=== PATIENT | male | born 1975 | race Caucasian/White ===

== ENCOUNTER 2017-03-28 12:55 | Inpatient (IN) | payer OTHER ==
[2017-03-28 16:54] VITALS: BMI 20.4
--- NOTE | 2017-03-28 18:21 | HP ---
COWS - Scale Resting Pulse: 0= HI 80 or Below Sweatin= Chills/Flushing Restless Observation: 3= Extraneous Movement Pupil Size: 0= Normal to Room Light Bone or Joint Aches: 2= Severe Diffuse Aches Runny Nose/ Eye Tearin= Runny Nose/Eyes GI Upset > 30mins: 2= Nausea/Diarrhea Tremor Observation: 2= Slight Tremor Visible Yawning Observation: 0= None Anxiety or Irritability: 2=Irritable/Anxious Goose Flesh Skin: 0=Smooth Skin COWS Score: 14 CIWA Score - CIWA Score Nausea/Vomitin-Mild Nausea/No Vomiting Muscle Tremors: 4-Moderate,w/Arms Extend Anxiety: 4-Mod. Anxious/Guarded Agitation: 4-Moderately Restless Paroxysmal Sweats: 1-Minimal Palms Moist Orientation: 0-Oriented Tacttile Disturbances: 0-None Auditory Disturbances: 0-None Visual Disturbances: 0-None Headache: 0-None Present CIWA-Ar Total Score: 14 Admission ROS S - HPI Chief Complaint: withdrawal sx Allergies/Adverse Reactions: Allergies Allergy/AdvReac Type Severity Reaction Status Date / Time No Known Allergies Allergy Verified 03/28/17 16:49 History of Present Illness: 42 years old male with long history of alcohol, xanax, opiate nicotine marijuana dependence, denies medical issue has depression is admitted to detox Exam Limitations: No Limitations - Ebola screening Have you traveled outside of the country in the last 21 days: No Have you had contact with anyone from an Ebola affected area: No Have you been sick,other than usual withdrawal symptoms: No Do you have a fever: No - Review of Systems Constitutional: Loss of Appetite, Changes in sleep, Unintentional Wgt. Loss, Unexplained wgt Loss EENT: reports: Blurred Vision (need eye glasses) Respiratory: reports: SOB with Exertion, Productive cough (brownish) Cardiac: reports: No Symptoms Reported GI: reports: Nausea, Poor Appetite, Poor Fluid Intake, Abdominal cramping : reports: No Symptoms Reported Musculoskeletal: reports: Back Pain, Joint Pain, Muscle Pain, Neck Pain Integumentary: reports: Rash Neuro: reports: Tremors Endocrine: reports: No Symptoms Reported Hematology: reports: No Symptoms Reported Psychiatric: reports: Judgement Intact, Orientated x3, Anxious, Depressed Other Systems: Reviewed and Negative Patient History - Patient Medical History Hx Anemia: No Hx Asthma: No Hx Chronic Obstructive Pulmonary Disease (COPD): No Hx Cancer: No Hx Cardiac Disorders: No Hx Congestive Heart Failure: No Hx Hypertension: No Hx Hypercholesterolemia: No Hx Pacemaker: No HX Cerebrovascular Accident: No Hx Seizures: No Hx Dementia: No Hx Diabetes: No Hx Gastrointestinal Disorders: No Hx Liver Disease: No Hx Genitourinary Disorders: No Hx Sexually Transmitted Disorders: No Hx Renal Disease (ESRD): No Hx Thyroid Disease: No Hx Human Immunodeficiency Virus (HIV): No Hx Hepatitis C: No Hx Depression: Yes Hx Suicide Attempt: No Hx Bipolar Disorder: No Hx Schizophrenia: No - Patient Surgical History Past Surgical History: Yes Hx Neurologic Surgery: No Hx Cataract Extraction: No Hx Cardiac Surgery: No Hx Lung Surgery: No Hx Breast Surgery: No Hx Breast Biopsy: No Hx Abdominal Surgery: No Hx Appendectomy: No Hx Cholecystectomy: No Hx Genitourinary Surgery: No Hx Orthopedic Surgery: No Other Surgical History: Tonsillectomy at age 5 yrs old Anesthesia Reaction: No - PPD History Previous Implant?: Yes Documented Results: Negative w/o proof Implanted On Prior R Admission?: No PPD to be Administered?: Yes - Smoking Cessation Smoking history: Current every day smoker Have you smoked in the past 12 months: Yes Aproximately how many cigarettes per day: 20 Cigars Per Day: 0 Hx Chewing Tobacco Use: No Initiated information on smoking cessation: Yes 'Breaking Loose' booklet given: 03/28/17 - Substance & Tx. History Hx Alcohol Use: Yes Hx Substance Use: Yes Substance Use Type: Alcohol, Cocaine, Marijuana, Opiates Hx Substance Use Treatment: No - Substances Abused Oxycontin Route: Oral Frequency: Daily Amount used: 2 of 20mg Age of first use: 24 Date of Last Use: 03/27/17 Marijuana/Hashish Route: Smoking Frequency: Daily Amount used: 2-3 joint Age of first use: 17 Date of Last Use: 03/28/17 Alprazolam (Xanax) Route: Oral Frequency: 1-2 times per week Amount used: 6mg Age of first use: 20 Date of Last Use: 03/26/17 percocet Route: Oral Frequency: Daily Amount used: 5-6 tabs Age of first use: 24 Date of Last Use: 03/27/17 Alcohol Route: Oral Frequency: 3-6 times per week Amount used: 24 oz x 6 beer Age of first use: 17 Date of Last Use: 03/27/17 Family Disease History - Family Disease History Family Disease History: Heart Disease: Mother (), CA: Father () , Other: Father, Mother Other Family History: only child Admission Physical Exam S - Vital Signs Vital Signs: Vital Signs - 24 hr 03/28/17 16:52 Temperature 97.2 F L Pulse Rate 70 Respiratory 20 Rate Blood Pressure 119/72 - Physical General Appearance: Yes: Appropriately Dressed, Mild Distress, Thin, Tremorous, Irritable, Sweating, Anxious HEENTM: Yes: Hearing grossly Normal, Normal ENT Inspection, Normocephalic, Normal Voice Respiratory: Yes: Chest Non-Tender, No Respiratory Distress, No Accessory Muscle Use Neck: Yes: Supple, Trachea in good position Breast: Yes: Breasts Symetrical Cardiology: Yes: Regular Rhythm, Regular Rate, S1, S2 Abdominal: Yes: Non Tender, Soft, Increased Bowel Sounds Genitourinary: Yes: Within Normal Limits Back: Yes: Normal Inspection Musculoskeletal: Yes: full range of Motion, Gait Steady, Back pain, Muscle Pain Extremities: Yes: Normal Range of Motion, Non-Tender, Tremors, Other (rashes hands) Neurological: Yes: Fully Oriented, Alert, Motor Strength 5/5, Normal Response, Depressed Affect Integumentary: Yes: Warm Lymphatic: Yes: Within Normal Limits - Diagnostic (1) Sedative, hypnotic or anxiolytic dependence with withdrawal, uncomplicated Current Visit: Yes Status: Acute (2) Cannabis dependence, uncomplicated Current Visit: Yes Status: Chronic (3) Alcohol dependence with uncomplicated withdrawal Current Visit: Yes Status: Acute (4) Acneiform rash Current Visit: Yes Status: Chronic (5) COPD (chronic obstructive pulmonary disease) Current Visit: Yes Status: Chronic 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 Qualified Code(s ): J43.0 - Unilateral pulmonary emphysema [MacLeod's syndrome]; J43.0 - Unilateral pulmonary emphysema [MacLeod's syndrome]; J43.0 - Unilateral pulmonary emphysema [MacLeod's syndrome]; J43.0 - Unilateral pulmonary emphysema [MacLeod's syndrome] (6) Weight loss Current Visit: Yes Status: Acute (7) Depression (emotion) Current Visit: Yes Status: Suspected Qualifiers: Depression Type: dysthymia Qualified Code(s): F34.1 - Dysthymic disorder; F34.1 - Dysthymic disorder; F34.1 - Dysthymic disorder Cleared for Admission [facility] - Detox or Rehab [facility] Level of Care: Medically Managed Detox Regimen/Protocol: Methadone/Valium [facility] Breath Alcohol Content Breath Alcohol Content: 0 Urine Drug Screen - Results Urine Drug Screen Results: THC-Marijuana, BZO-Benzodiazepines, OXY-Oxycodone
[2017-03-28] MEDS ORDERED: guaiFENesin/D-METHORPHAN HB 10 ML UNIT-DOSE CUPS PO PRN (18:31)
[2017-03-28] MEDS ORDERED: MAGNESIUM CITRATE 300 ML BOTTLE PO PRN (18:31)
[2017-03-28] MEDS ORDERED: MAGNESIUM HYDROX 2400MG/30ML ORAL SUSPENSION 30 ML CUP PO PRN (18:31)
[2017-03-28] MEDS ORDERED: MENTHOL/PHENOL 1 EACH UD MM PRN (18:31)
[2017-03-28] MEDS ORDERED: P-EPHED 60MG/TRIPROLIDI 2.5MG TABLET PO PRN (18:31)
[2017-03-28] MEDS ORDERED: ACETAMINOPHEN 325 MG TABLET (FP) PO PRN (18:31)
[2017-03-28] MEDS ORDERED: METHADONE HCL 10 MG TABLET (FOR DETOX USE ONLY) PO ONE ×2 (19:00→23:00)
[2017-03-28] MEDS ORDERED: diazePAM 5 MG TABLET PO ONE (19:00)
[2017-03-28 22:11] LABS: URINE APPEARANCE CLEAR; URINE BILIRUBIN NEGATIVE (NEGATIVE); URINE BLOOD NEGATIVE (NEGATIVE); URINE COLOR LTYELLOW; URINE GLUCOSE (UA) NEGATIVE (NEGATIVE); URINE KETONE NEGATIVE (NEGATIVE); URINE NITRITE NEGATIVE (NEGATIVE); URINE PROTEIN NEGATIVE (NEGATIVE); URINE UROBILINOGEN NEGATIVE mg/dL (0.2-1.0)
[2017-03-28] MEDS: HYDROCORTISONE 1% TOPICAL CREAM 30 GM TUBE TP SCH (22:14)
[2017-03-28] MEDS: diazePAM 5 MG TABLET PO SCH (22:14)
[2017-03-28] MEDS: THIAMINE HCL 100 MG TABLET (FP) PO SCH (22:14)
[2017-03-28] MEDS: ALBUTEROL SO4 18 GM HFA INHALER IH PRN (22:17)
[2017-03-28] MEDS: NICOTINE POLACRILEX 4 MG GUM BC PRN (22:17)
[2017-03-29] MEDS: diazePAM 5 MG TABLET PO SCH ×3 (05:49→22:16)
[2017-03-29] MEDS: NICOTINE POLACRILEX 4 MG GUM BC PRN (06:06)
[2017-03-29] MEDS: diazePAM 5 MG TABLET PO PRN ×3 (09:16→23:51)
[2017-03-29 09:38] LABS: MCH 31.8 pg (25.7-33.7); MCHC 33.2 g/dl (32.0-35.9); MEAN PLT VOLUME 7.9 fl (7.5-11.1); PLATELET COUNT 221 K/MM3 (134-434); RDW 13.2 % (11.9-15.9); WHITE BLOOD COUNT 5.5 K/mm3 (4.0-10.0)
[2017-03-29 09:57] LABS: ALBUMIN 3.7 g/dl (3.4-5.0); ALK PHOS 66 U/L (45-117); ANION GAP 9 (8-16); BILIRUBIN,TOTAL 0.5 mg/dL (0.2-1.0); CALCIUM 8.6 mg/dL (8.5-10.1); CO2 28 mmol/L (21-32); CREATININE 0.7 mg/dL (0.7-1.3); GLUCOSE,RANDOM 100 mg/dL (74-106); SGOT/AST 6 U/L (15-37); SGPT/ALT 14 U/L (12-78); TOT PROT 6.2 g/dl (6.4-8.2)
[2017-03-29] MEDS ORDERED: METHADONE HCL 10 MG TABLET (FOR DETOX USE ONLY) PO SCH (10:00)
[2017-03-29] MEDS: PRENATAL VITAMINS W/ FOLIC ACID TABLET (FP) PO SCH (11:05)
[2017-03-29] MEDS: NICOTINE 21 MG/24 HOURS TOPICAL PATCH TD SCH (11:06)
[2017-03-29] MEDS: HYDROCORTISONE 1% TOPICAL CREAM 30 GM TUBE TP SCH ×3 (11:07→22:18)
[2017-03-29 11:39] LABS: URINE LEUK ESTERASE Negative (NEGATIVE)
--- NOTE | 2017-03-29 11:41 | PN ---
S CIWA - CIWA Score Nausea/Vomitin Muscle Tremors: 3 Anxiety: 3 Agitation: 2 Paroxysmal Sweats: 1-Minimal Palms Moist Orientation: 0-Oriented Tacttile Disturbances: 1-Very Mild Itch/Numbness Auditory Disturbances: 1-Very Mild Visual Disturbances: 0-None Headache: 2-Mild CIWA-Ar Total Score: 16 BHS Progress Note (SOAP) Subjective: alert,irritable,anxious,interrupted sleep,tremor Objective: 03/29/17 11:39 Vital Signs Temperature 98.1 F 03/29/17 11:03 Pulse Rate 78 03/29/17 11:03 Respiratory Rate 20 03/29/17 11:03 Blood Pressure 131/78 03/29/17 11:03 O2 Sat by Pulse Oximetry (%) ekg nsr with sinus arrhythmia normal ecg Assessment: 03/29/17 11:40 Laboratory Last Values WBC 5.5 K/mm3 (4.0-10.0) 03/29/17 07:00 RBC 4.34 M/mm3 (4.00-5.60) 03/29/17 07:00 Hgb 13.8 GM/dL (11.7-16.9) 03/29/17 07:00 Hct 41.6 % (35.4-49) 03/29/17 07:00 MCV 96.0 fl (80-96) 03/29/17 07:00 MCH 31.8 pg (25.7-33.7) 03/29/17 07:00 MCHC 33.2 g/dl (32.0-35.9) 03/29/17 07:00 RDW 13.2 % (11.9-15.9) 03/29/17 07:00 Plt Count 221 K/MM3 (134-434) 03/29/17 07:00 MPV 7.9 fl (7.5-11.1) 03/29/17 07:00 Sodium 139 mmol/L (136-145) 03/29/17 07:00 Potassium 3.9 mmol/L (3.5-5.1) 03/29/17 07:00 Chloride 102 mmol/L (98-107) 03/29/17 07:00 Carbon Dioxide 28 mmol/L (21-32) 03/29/17 07:00 Anion Gap 9 (8-16) 03/29/17 07:00 BUN 9 mg/dL (7-18) 03/29/17 07:00 Creatinine 0.7 mg/dL (0.7-1.3) 03/29/17 07:00 Creat Clearance w eGFR > 60 (>60) 03/29/17 07:00 Random Glucose 100 mg/dL (74-106) 03/29/17 07:00 Calcium 8.6 mg/dL (8.5-10.1) 03/29/17 07:00 Total Bilirubin 0.5 mg/dL (0.2-1.0) 03/29/17 07:00 AST 6 U/L (15-37) L 03/29/17 07:00 ALT 14 U/L (12-78) 03/29/17 07:00 Alkaline Phosphatase 66 U/L (45-117) 03/29/17 07:00 Total Protein 6.2 g/dl (6.4-8.2) L 03/29/17 07:00 Albumin 3.7 g/dl (3.4-5.0) 03/29/17 07:00 Urine Color Ltyellow 03/28/17 21:30 Urine Appearance Clear 03/28/17 21:30 Urine pH 5.0 (5.0-8.0) 03/28/17 21:30 Urine Protein Negative (NEGATIVE) 03/28/17 21:30 Urine Glucose (UA) Negative (NEGATIVE) 03/28/17 21:30 Urine Ketones Negative (NEGATIVE) 03/28/17 21:30 Urine Blood Negative (NEGATIVE) 03/28/17 21:30 Urine Nitrite Negative (NEGATIVE) 03/28/17 21:30 Urine Bilirubin Negative (NEGATIVE) 03/28/17 21:30 Urine Urobilinogen Negative mg/dL (0.2-1.0) 03/28/17 21:30 RPR Titer Nonreactive (NONREACTIVE) 03/29/17 07:00 03/29/17 11:40 03/29/17 11:40 withdrawal sympom Plan: continue detox
--- NOTE | 2017-03-29 12:04 | EKG ---
Test Reason : Blood Pressure : / mmHG Vent. Rate : 063 BPM Atrial Rate : 063 BPM P-R Int : 150 ms QRS Dur : 096 ms QT Int : 386 ms P-R-T Axes : 058 074 058 degrees QTc Int : 395 ms NORMAL SINUS RHYTHM WITH SINUS ARRHYTHMIA NORMAL ECG NO PREVIOUS ECGS AVAILABLE Confirmed by JOSH ROSE, EMIR ([id number]) on 03/29/2017 12:04:35 PM Referred By: Confirmed By:EMIR MORENO MD
[2017-03-29] MEDS: IBUPROFEN 400 MG TABLET (FP) PO PRN (15:11)
--- NOTE | 2017-03-29 17:25 | CONSULT ---
[facility] Psychiatric Consult - Data Date of interview: 03/29/17 Admission source: [facility] Identifying data: First admission to [facility] for this 42 y/o male seeking detox treatment on for alcohol,marihuana,xanax and opiate dependence.Patient is single without children,domiciled and supported on odd jobs. Substance Abuse History: Patient confirmed this pattern of addictions. Smoking Cessation. Smoking history: Current every day smoker. Have you smoked in the past 12 months: Yes. Aproximately how many cigarettes per day: 20. Cigars Per Day: 0. Hx Chewing Tobacco Use: No. Initiated information on smoking cessation : Yes. 'Breaking Loose' booklet given: 03/28/17. - Substance & Tx. History. Hx Alcohol Use: Yes. Hx Substance Use: Yes. Substance Use Type: Alcohol, Cocaine, Marijuana, Opiates. Hx Substance Use Treatment: No. - Substances Abused. Oxycontin. Route: Oral. Frequency: Daily. Amount used: 2 of 20mg. Age of first use: 24. Date of Last Use: 03/27/17. Marijuana/ Hashish. Route: Smoking. Frequency: Daily. Amount used: 2-3 joint. Age of first use: 17. Date of Last Use: 03/28/17. Alprazolam (Xanax). Route: Oral. Frequency: 1-2 times per week. Amount used: 6mg. Age of first use: 20. Date of Last Use: 03/26/17. percocet. Route: Oral. Frequency: Daily. Amount used: 5-6 tabs. Age of first use: 24. Date of Last Use: 03/27/17. Alcohol. Route: Oral. Frequency: 3-6 times per week. Amount used: 24 oz x 6 beer. Age of first use: 17. Date of Last Use: 03/27/17 Medical History: Chronic back pain and history of tonsillectomy in childhood Psychiatric History: Patient denies. Physical/Sexual Abuse/Trauma History: Patient denies. Additional Comment: Urine Drug Screen Results: THC-Marijuana, BZO- Benzodiazepines, OXY-Oxycodone.Noted. Mental Status Exam - Mental Status Exam Alert and Oriented to: Time, Place, Person Cognitive Function: Good Patient Appearance: Well Groomed Mood: Nervous, Anxious Affect: Mood Congruent Patient Behavior: Cooperative (emotional during interview) Speech Pattern: Clear Voice Loudness: Normal Thought Process: Intact, Goal Oriented Thought Disorder: Not Present Hallucinations: Denies Suicidal Ideation: Denies Homicidal Ideation: Denies Insight/Judgement: Poor Sleep: Poorly, Difficulty falling asleep Appetite: Good Muscle strength/Tone: Normal Gait/Station: Normal Psychiatric Findings - Problem List ([place] 1, 2,3) (1) Alcohol dependence with uncomplicated withdrawal Current Visit: Yes Status: Acute (2) Sedative, hypnotic or anxiolytic dependence with withdrawal, uncomplicated Current Visit: Yes Status: Acute (3) Cannabis dependence, uncomplicated Current Visit: Yes Status: Acute (4) Substance induced mood disorder Current Visit: Yes Status: Acute (5) COPD (chronic obstructive pulmonary disease) Current Visit: Yes Status: Chronic 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
[2017-03-29] MEDS: THIAMINE HCL 100 MG TABLET (FP) PO SCH (22:16)
[2017-03-29] MEDS: ZOLPIDEM TARTRATE 10 MG TABLET (PARK CARE ONLY) PO PRN (22:16)
[2017-03-30] MEDS: diazePAM 5 MG TABLET PO PRN ×3 (06:20→19:36)
[2017-03-30] MEDS: MAG HYDROX/AL HYDROX/SIMETH 30 ML UNIT-DOSE CUP PO PRN (06:48)
[2017-03-30] MEDS: PRENATAL VITAMINS W/ FOLIC ACID TABLET (FP) PO SCH (11:14)
[2017-03-30] MEDS: diazePAM 5 MG TABLET PO SCH ×2 (11:14→22:22)
[2017-03-30] MEDS: METHADONE HCL 5 MG TABLET (FOR DETOX USE ONLY) PO SCH (11:14)
[2017-03-30] MEDS: NICOTINE 21 MG/24 HOURS TOPICAL PATCH TD SCH (11:16)
[2017-03-30] MEDS: HYDROCORTISONE 1% TOPICAL CREAM 30 GM TUBE TP SCH ×4 (11:18→22:35)
--- NOTE | 2017-03-30 12:13 | PN ---
S CIWA - CIWA Score Nausea/Vomitin Muscle Tremors: 3 Anxiety: 3 Agitation: 2 Paroxysmal Sweats: 1-Minimal Palms Moist Orientation: 0-Oriented Tacttile Disturbances: 1-Very Mild Itch/Numbness Auditory Disturbances: 1-Very Mild Visual Disturbances: 0-None Headache: 2-Mild CIWA-Ar Total Score: 16 BHS COWS - Scale Resting Pulse: 0= [place] 80 or Below Sweatin= Chills/Flushing Restless Observation: 3= Extraneous Movement Pupil Size: 1= Pupils >than Normal Bone or Joint Aches: 2= Severe Diffuse Aches Runny Nose/ Eye Tearin= Nasal Congestion GI Upset > 30mins: 2= Nausea/Diarrhea Tremor Observation of Outstretched Hands: 2= Slight Tremor Visible Yawning Observation: 1= 1-2x During Session Anxiety or Irritability: 2=Irritable/Anxious Goose Flesh Skin: 0=Smooth Skin COWS Score: 15 BHS Progress Note (SOAP) Subjective: alert,irritable,anxious,interrupted sleep,tremor,pain in the body and back Objective: 03/30/17 12:11 Vital Signs Temperature 97.7 F 03/30/17 09:33 Pulse Rate 73 03/30/17 09:33 Respiratory Rate 18 03/30/17 09:33 Blood Pressure 124/67 03/30/17 09:33 O2 Sat by Pulse Oximetry (%) Laboratory Last Values WBC 5.5 K/mm3 (4.0-10.0) 03/29/17 07:00 RBC 4.34 M/mm3 (4.00-5.60) 03/29/17 07:00 Hgb 13.8 GM/dL (11.7-16.9) 03/29/17 07:00 Hct 41.6 % (35.4-49) 03/29/17 07:00 MCV 96.0 fl (80-96) 03/29/17 07:00 MCH 31.8 pg (25.7-33.7) 03/29/17 07:00 MCHC 33.2 g/dl (32.0-35.9) 03/29/17 07:00 RDW 13.2 % (11.9-15.9) 03/29/17 07:00 Plt Count 221 K/MM3 (134-434) 03/29/17 07:00 MPV 7.9 fl (7.5-11.1) 03/29/17 07:00 Sodium 139 mmol/L (136-145) 03/29/17 07:00 Potassium 3.9 mmol/L (3.5-5.1) 03/29/17 07:00 Chloride 102 mmol/L (98-107) 03/29/17 07:00 Carbon Dioxide 28 mmol/L (21-32) 03/29/17 07:00 Anion Gap 9 (8-16) 03/29/17 07:00 BUN 9 mg/dL (7-18) 03/29/17 07:00 Creatinine 0.7 mg/dL (0.7-1.3) 03/29/17 07:00 Creat Clearance w eGFR > 60 (>60) 03/29/17 07:00 Random Glucose 100 mg/dL (74-106) 03/29/17 07:00 Calcium 8.6 mg/dL (8.5-10.1) 03/29/17 07:00 Total Bilirubin 0.5 mg/dL (0.2-1.0) 03/29/17 07:00 AST 6 U/L (15-37) L 03/29/17 07:00 ALT 14 U/L (12-78) 03/29/17 07:00 Alkaline Phosphatase 66 U/L (45-117) 03/29/17 07:00 Total Protein 6.2 g/dl (6.4-8.2) L 03/29/17 07:00 Albumin 3.7 g/dl (3.4-5.0) 03/29/17 07:00 Urine Color Ltyellow 03/28/17 21:30 Urine Appearance Clear 03/28/17 21:30 Urine pH 5.0 (5.0-8.0) 03/28/17 21:30 Ur Specific [place] 1.015 (1.005-1.025) 03/28/17 21:30 Urine Protein Negative (NEGATIVE) 03/28/17 21:30 Urine Glucose (UA) Negative (NEGATIVE) 03/28/17 21:30 Urine Ketones Negative (NEGATIVE) 03/28/17 21:30 Urine Blood Negative (NEGATIVE) 03/28/17 21:30 Urine Nitrite Negative (NEGATIVE) 03/28/17 21:30 Urine Bilirubin Negative (NEGATIVE) 03/28/17 21:30 Urine Urobilinogen Negative mg/dL (0.2-1.0) 03/28/17 21:30 Ur Leukocyte Esterase Negative (NEGATIVE) 03/28/17 21:30 RPR Titer Nonreactive (NONREACTIVE) 03/29/17 07:00 Assessment: 03/30/17 12:12 withdrawal symptom Plan: continue detox
[2017-03-30] MEDS: LOPERAMIDE HCL 2 MG CAPSULE PO PRN (13:52)
--- NOTE | 2017-03-30 16:17 | PN ---
[facility] Progress Note Note: Psychiatry Attending's note (follow-up) : Asked by counselor to see this patient. Reason : complaint of depression. Mr Mckeon was evaluated on 03/29/17 by this commercial lines underwriter. Met with patient in a second session.No new clinical findings. Still with dysphoria,ambivalence and craving for substances. Not motivated for sobriety." I will get back to drugs as soon as I get out of here." He is offered a trial of SSRI medication.Patient refuses.Not receptive to psychotherapy. Future-oriented : currently planning to get GED and look for a regular job.Eager to keep his apartment. Mr Mckeon denies suicidal/homicidal ideation,intent or plan.Cognitively intact.Benign hospital course.
[2017-03-30] MEDS ORDERED: cloNIDine HCL 0.1 MG TABLET PO PRN (17:45)
[2017-03-30] MEDS ORDERED: ONDANSETRON *ODT* 4 MG TABLET SL ONE (18:15)
[2017-03-30] MEDS ORDERED: BACLOFEN 10 MG TABLET (FP) PO ONE (18:15)
[2017-03-30] MEDS: NICOTINE POLACRILEX 4 MG GUM BC PRN ×2 (19:37→22:40)
[2017-03-30] MEDS: THIAMINE HCL 100 MG TABLET (FP) PO SCH (22:22)
[2017-03-30] MEDS: ZOLPIDEM TARTRATE 10 MG TABLET (PARK CARE ONLY) PO PRN (22:22)
[2017-03-31] MEDS: diazePAM 5 MG TABLET PO PRN ×3 (02:23→18:05)
[2017-03-31] MEDS: diphenhydrAMINE HCL 50 MG CAPSULE PO PRN (02:23)
[2017-03-31] MEDS: LOPERAMIDE HCL 2 MG CAPSULE PO PRN ×2 (02:24→14:37)
[2017-03-31] MEDS: HYDROCORTISONE 1% TOPICAL CREAM 30 GM TUBE TP SCH ×4 (10:50→22:55)
[2017-03-31] MEDS: METHADONE HCL 5 MG TABLET (FOR DETOX USE ONLY) PO SCH (10:51)
[2017-03-31] MEDS: PRENATAL VITAMINS W/ FOLIC ACID TABLET (FP) PO SCH (10:51)
[2017-03-31] MEDS: NICOTINE 21 MG/24 HOURS TOPICAL PATCH TD SCH (10:51)
[2017-03-31] MEDS: diazePAM 5 MG TABLET PO SCH ×2 (10:51→22:56)
--- NOTE | 2017-03-31 14:18 | PN ---
B[facility] Progress Note (SOAP) Subjective: alert,irritable,anxious,interrupted sleep,loose bowel movement Objective: 03/31/17 14:17 Vital Signs Temperature 99.0 F 03/31/17 14:10 Pulse Rate 95 H 03/31/17 14:10 Respiratory Rate 18 03/31/17 14:10 Blood Pressure 121/92 03/31/17 14:10 O2 Sat by Pulse Oximetry (%) Assessment: 03/31/17 14:17 withdrawal symptom Plan: continue detox
[2017-03-31] MEDS ORDERED: METHADONE HCL 10 MG TABLET (FOR DETOX USE ONLY) PO ONE (15:00)
--- NOTE | 2017-03-31 15:00 | PN ---
B[facility] Progress Note Note: patient refused methadone 15 mgs po earlier,methadone 15 mgs po now
[2017-03-31] MEDS: NICOTINE POLACRILEX 4 MG GUM BC PRN (18:21)
[2017-03-31] MEDS: ZOLPIDEM TARTRATE 10 MG TABLET (PARK CARE ONLY) PO PRN (22:56)
[2017-03-31] MEDS: THIAMINE HCL 100 MG TABLET (FP) PO SCH (22:56)
[2017-04-01] MEDS: MAG HYDROX/AL HYDROX/SIMETH 30 ML UNIT-DOSE CUP PO PRN (02:28)
[2017-04-01] MEDS: LOPERAMIDE HCL 2 MG CAPSULE PO PRN ×2 (02:28→14:36)
[2017-04-01] MEDS: diphenhydrAMINE HCL 50 MG CAPSULE PO PRN (02:28)
[2017-04-01] MEDS: ALBUTEROL SO4 18 GM HFA INHALER IH PRN ×3 (02:32→20:39)
[2017-04-01] MEDS: NICOTINE POLACRILEX 4 MG GUM BC PRN (07:11)
[2017-04-01] MEDS ORDERED: METHADONE HCL 10 MG TABLET (FOR DETOX USE ONLY) PO SCH (10:00)
[2017-04-01] MEDS ORDERED: diazePAM 5 MG TABLET PO SCH (10:00)
[2017-04-01] MEDS: PRENATAL VITAMINS W/ FOLIC ACID TABLET (FP) PO SCH (10:44)
[2017-04-01] MEDS: NICOTINE 21 MG/24 HOURS TOPICAL PATCH TD SCH (10:44)
[2017-04-01] MEDS: HYDROCORTISONE 1% TOPICAL CREAM 30 GM TUBE TP SCH ×4 (11:24→22:55)
--- NOTE | 2017-04-01 13:54 | PN ---
[facility] Progress Note (SOAP) Subjective: ALERT,IRRITABLE,INTERRUPTED SLEEP,LOOSE BOWEL MOVEMENT Objective: 04/01/17 13:53 04/01/17 13:53 Vital Signs Temperature 98.1 F 04/01/17 11:03 Pulse Rate 81 04/01/17 11:03 Respiratory Rate 18 04/01/17 11:03 Blood Pressure 109/58 04/01/17 11:03 O2 Sat by Pulse Oximetry (%) Assessment: 04/01/17 13:53 WITHDRAWAL SYMPTOM Plan: CONTINUE DETOX,DISCHARGE IN AM
[2017-04-01] MEDS: DIPHENOXYLATE 2.5/ATROPINE.025 1 COMBO TABLET PO PRN (20:38)
[2017-04-01] MEDS ORDERED: ZOLPIDEM TARTRATE 5 MG TABLET PO PRN (22:00)
[2017-04-01] MEDS ORDERED: hydrOXYzine PAMOATE 25 MG CAPSULE (FP) PO PRN (22:01)
[2017-04-01] MEDS: THIAMINE HCL 100 MG TABLET (FP) PO SCH (23:06)
[2017-04-02] MEDS ORDERED: METHADONE HCL 5 MG TABLET (FOR DETOX USE ONLY) PO SCH (06:00)
[2017-04-02] MEDS: IBUPROFEN 400 MG TABLET (FP) PO PRN (06:15)
[2017-04-02] MEDS: NICOTINE POLACRILEX 4 MG GUM BC PRN (09:09)
--- NOTE | 2017-04-02 09:31 | DS ---
[facility] Detox Discharge Summary Admission Date: 03/28/17 Discharge Date: 04/02/17 - History Present History: Cannabis Dependence, Opioid Dependence, Sedative Dependence Pertinent Past History: copd weight loss depression - Physical Exam Results Vital Signs: Vital Signs Temperature 99.3 F 04/02/17 06:03 Pulse Rate 81 04/02/17 06:03 Respiratory Rate 18 04/02/17 06:03 Blood Pressure 119/60 04/02/17 06:03 O2 Sat by Pulse Oximetry (%) Pertinent Admission Physical Exam Findings: withdrawal symptom - Treatment Hospital Course: Detox Protocol Followed, Detoxed Safely, Responded well, Discharged Condition Good, Rehab Referral Accepted Patient has Accepted a Rehab Referral to: [facility] - Medication Discharge Medications: Ambulatory Orders NK [No Known Home Medication] 03/28/17 - Diagnosis (1) Opioid dependence with withdrawal Current Visit: Yes Status: Acute (2) Cannabis dependence, uncomplicated Current Visit: Yes Status: Acute (3) Sedative, hypnotic or anxiolytic dependence with withdrawal, uncomplicated Current Visit: Yes Status: Acute (4) Weight loss Current Visit: Yes Status: Acute (5) COPD (chronic obstructive pulmonary disease) Current Visit: Yes Status: Chronic 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
[2017-04-02] MEDS: PRENATAL VITAMINS W/ FOLIC ACID TABLET (FP) PO SCH (10:58)
[2017-04-02] MEDS: NICOTINE 21 MG/24 HOURS TOPICAL PATCH TD SCH (10:58)
[2017-04-02] MEDS: HYDROCORTISONE 1% TOPICAL CREAM 30 GM TUBE TP SCH (10:59)
[2017-04-02] MEDS: DIPHENOXYLATE 2.5/ATROPINE.025 1 COMBO TABLET PO PRN (11:00)
[2017-04-02 11:15] VITALS: BP 125/101; PULSE 82; TEMP 98.1
[2017-04-02] MEDS ORDERED: NICOTINE 14 MG/24 HOURS TOPICAL PATCH TD SCH (11:15)
== END 2017-04-02 12:20 | disposition other institution (70) | DRG 773 ==
LOC: YASAS 12:55 → Y6N 17:53
PROVIDERS: ADMIT Internal Medicine; ATTEND Internal Medicine
PROC: HZ2ZZZZ Detoxification Services for Substance Abuse Treatment (ICD-10-PCS; principal; 2017-03-28)
DX: F11.23 Opioid dependence with withdrawal (principal); F13.230 Sedative, hypnotic or anxiolytic dependence with withdrawal, uncomplicated; F12.20 Cannabis dependence, uncomplicated; F34.1 Dysthymic disorder; F19.24 Other psychoactive substance dependence with psychoactive substance-induced mood disorder; J43.0 Unilateral pulmonary emphysema [MacLeod's syndrome]; R63.4 Abnormal weight loss; G47.00 Insomnia, unspecified; Z68.20 Body mass index [BMI] 20.0-20.9, adult
CPT/HCPCS: 36415; 80053; 81003; 85027; 86593; 93005; 93010; J0475